=== PATIENT | male | born 1945 | race Caucasian/White ===

== ENCOUNTER 2024-10-21 14:44 | Emergency (ER) | payer MEDICARE ==
[2024-10-21] MEDS: Lidocaine 1% 5 ML VIAL INJECT ONE (15:25)
[2024-10-21] MEDS: Bacitracin Oint 1 GM U/D Packet TOP ONE (15:25)
[2024-10-21] MEDS: Diphtheria,Pertussis(Acell),Tetanus Vaccine 0.5 ML Syringe IM ONE (16:07)
== END 2024-10-21 16:15 | disposition home or self-care (01) ==
LOC: JP.ED 14:44
DX: S61.222A Laceration with foreign body of right middle finger without damage to nail, initial encounter (principal); I48.91 Unspecified atrial fibrillation; Z79.01 Long term (current) use of anticoagulants; Z79.899 Other long term (current) drug therapy; W23.1XXA Caught, crushed, jammed, or pinched between stationary objects, initial encounter; Z23 Encounter for immunization
CPT/HCPCS: 12004; 90471; 90715; 99282-25; 99283; J2003